=== PATIENT | male | born 1985 | race Caucasian/White ===

== ENCOUNTER 2019-04-18 08:03 | Emergency (ER) | payer OTHER, SELFPAY ==
[2019-04-18 08:05] VITALS: BP 141/99; PULSE 98; RESP 18; TEMP 36.7; O2SAT 97
[2019-04-18] MEDS: predniSONE 20 MG TABLET 60 MG PO (08:36)
--- NOTE | 2019-04-18 13:46 | ED_ITS ---
HPI - Neuro Symptoms/Deficit General Chief Complaint: Neuro Symptoms/Deficit Stated Complaint: DROOPING OF R SIDE OF FACE Time Seen by Provider: 04/18/19 08:09 Source: patient Mode of arrival: Ambulatory Limitations: no limitations History of Present Illness HPI Narrative: The patient presents emergency department complaining of right facial droop that began yesterday afternoon, but was worse today when he woke up . Patient states that he has not had any other symptoms. No other neurologic deficits. No visual changes. No difficulty speaking or swallowing. He denies any chest pain or shortness breath. No recent illnesses. No vomiting or diarrhea. No abdominal pain. Patient states his right eye does feel a little bit irritated. No fevers. No other complaints at this time. Patient has no personal or family history of CVA. On Anticoagulants: No Related Data Previous Rx's Medication Instructions Recorded prednisone 60 mg PO DAILY #15 tab 04/18/19 Allergies Allergy/AdvReac Type Severity Reaction Status Date / Time No Known Allergies Allergy Uncoded 07/13/17 11:50 Review of Systems Constitutional Constitutional: Denies chills, Denies fatigue, Denies fever(s), Denies frequent falls, Denies headache(s), Denies lethargy and Reports weakness (Facial, right) Eyes Eyes: Denies change in vision, Denies eye discharge, Denies irritation and Denies loss of vision ENT Ears, Nose, Mouth, and Throat: Denies change in voice, Denies dizziness, Denies headache(s), Denies neck pain, Denies sore throat and Denies throat swelling Cardiovascular Cardiovascular: Denies chest pain, Denies irregular heart rhythm, Denies lightheadedness, Denies palpitations, Denies dyspnea, Denies dyspnea on exertion and Denies orthopnea Respiratory Respiratory: Denies cough, Denies dyspnea, Denies dyspnea on exertion and Denies wheezing Gastrointestinal Gastrointestinal: Denies abdominal pain, Denies change in bowel habits, Denies diarrhea, Denies nausea and Denies vomiting Genitourinary Genitourinary: Denies hematuria, Denies flank pain, Denies urinary incontinence and Denies urinary urgency Musculoskeletal Musculoskeletal: Denies back pain, Denies muscle weakness, Denies neck pain, Denies numbness and Denies tingling Integumentary/Breasts Skin/Breast: Denies pruritus, Denies erythema, Denies rash and Denies wounds Neurologic Neurologic: Denies behavioral changes, Denies confusion, Denies dizziness, Denies frequent falls, Denies headache(s), Denies loss of vision, Denies numbness, Denies tingling and Reports weakness (Facial, right) Psychiatric Psychiatric: Denies anxiety, Denies behavioral changes, Denies confusion, Denies depression, Denies homicidal ideation and Denies suicidal ideation Endocrine Endocrine: Denies fatigue, Denies flushing and Denies palpitations Hematologic/Lymphatic Hematologic/Lymphatic: Denies easy bruising Allergic/Immunologic Allergic/Immunologic: Denies urticaria, Denies throat swelling and Denies wheezing Patient History Medical History Healthy adult (Acute) Surgical History No pertinent past surgical history (Acute) Social History Smoking Status: Never smoker Smoking Status: Never smoker alcohol intake frequency: 0-2 drinks per day Substance Use Type: marijuana Exam Initial Vital Signs Initial Vital Signs: Vital Signs Temperature 98.1 F 04/18/19 08:05 Pulse Rate 98 H 04/18/19 08:05 Respiratory Rate 18 04/18/19 08:05 Blood Pressure 141/99 H 04/18/19 08:05 Pulse Oximetry 97 04/18/19 08:05 Const General: cooperative and well developed Nutritional Appearance: well nourished [facility] Head: normocephalic and atraumatic Ears: external ears normal Nose: external nose normal and No nasal discharge Face and sinus: face symmetric and no sinus tenderness Mouth: oral mucosae normal and moist mucous membranes Teeth and gingiva: dentition normal Eyes General: appearance normal, both eyes and all related structures Eyelids: eyelids normal Conjunctivae: conjunctivae normal Sclera: sclerae normal Pupils: PERRL EOM: EOM intact bilaterally Neck Neck: normal visual inspection, trachea midline, No lymphadenopathy, No midline deformity and No JVD Lymphatic: No lymphedema Chest Chest: normal inspection of the chest Resp Effort & Inspection: normal respiratory effort, able to speak in complete sentences, no respiratory distress and no use of accessory muscles Auscultation: clear to auscultation bilaterally, no rales, no rhonchi and no wheezes Cardio Rate: regular rate Rhythm: regular rhythm Heart Sounds: no click, no gallops, no murmurs and no rubs Pulses: normal peripheral pulses GI Inspection: non-distended Palpation: soft, no hepatosplenomegaly, No guarding, No pulsatile mass and No tender Auscultation: normal bowel sounds Back/Spine/Pelvis Back: No CVA tenderness Cervical Spine: cervical ROM normal and No pain with cervical ROM Thoracic/Lumbar Spine: thoracic and lumbar spine normal to inspection Skin General: no rashes or lesions noted, No jaundice and No petechiae Neuro General: alert, oriented x3, gait normal and no focal motor deficits Cranial Nerves: No facial strength normal (Droop involving entire right face, including weakness of forehead) Cognition: normal cognition Speech: speech normal Gait: normal gait Motor: muscle tone normal throughout and strength 5/5 throughout Sensory Exam: no sensory deficits noted Other: Patient is noted to have droop of his right mouth and inability to tightly close his right eye. He is not able to raise his right eyebrow and there is no forehead wrinkle. 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 We have discussed the etiology, as well as the expected course and the self-limited nature of this illness. We've discussed the use of prednisone and of Lacri-Lube. Patient is deemed stable for discharge home. I've referred him to [facility] for follow-up. Orders Ordered: Discontinued Medications Prednisone (Deltasone) 60 mg PO NOW ONE Stop: 04/18/19 08:21 Last Admin: 04/18/19 08:36 Dose: 60 mg Documented by: ISAC Vital Signs Vital signs: Vital Signs - 8 hr 04/18/19 08:05 Temperature 98.1 F Pulse Rate 98 H Respiratory Rate 18 Blood Pressure 141/99 H Pulse Oximetry 97 MDM - Neuro Symptoms/Deficit Medical Records Attestation: I reviewed the patient's medical records. Discharge Plan Departure Patient Disposition: Home Clinical Impression: Facial paralysis/[place] palsy Discharge Date/Time: 04/18/19 08:39 Instructions: DI for Higgins's Palsy Prescriptions: New prednisone 20 mg tablet 60 mg PO DAILY Qty: 15 RF: 0 Referrals: [facility] [Provider Group]
== END 2019-04-18 08:39 | disposition home or self-care (01) ==
PROVIDERS: Emergency Provider Emergency Medicine
DX: G51.0 Bell's palsy (principal)
CPT/HCPCS: 99283